=== PATIENT | female | born 1995 | race Caucasian/White ===

== ENCOUNTER 2018-03-23 19:33 | Emergency (ER) | payer BC ==
--- NOTE | 2018-03-23 19:42 | EDM.PDOC ---
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 10 wks bleeding Time Seen by Provider: 03/23/18 19:35 Source of Information: Reports: Patient, Family () History Limitations: Reports: No Limitations - History of Present Illness INITIAL COMMENTS - FREE TEXT/NARRATIVE: Patient was brought to the emergency room via private automobile by her for evaluation of a possible SAB with the patient currently about 10 weeks with EDC of 10/21/18. She is 1 para 0 with no problems in her to this point. She has had an initial OB visit at [facility] in [place] with records not available for review. She began experiencing some mild to moderate vaginal bleeding at about 19:20 hours this afternoon in her bathroom when having a BM after driving home from [place] earlier this afternoon. She is having some lower abdominal and pelvic cramping at about 2/10. No recent history of other abdominal pain, heartburn, nausea, diarrhea, melena, gross hematochezia, or any food intolerance, including fatty foods, etc.. The patient also denies any recent fever, cough, wheezing, dyspnea, etc.. No recent history of fever, colic, hematuria, or other UTI symptoms. She also denies any recent history of fall, injury, aggressive intercourse, etc. Onset: Today, Sudden Onset Date: 03/23/18 Onset Time: 19:20 Duration: Constant Location: Reports: Abdomen, Pelvis. Denies: Head, Face, Neck, Chest, Back, Upper Extremity, Left, Upper Extremity, Right, Lower Extremity, Left, Lower Extremity, Right, Generalized, Radiates to Quality: Reports: Pressure, Stabbing Severity: Mild Improves with: Reports: None Worsens with: Reports: None Context: Reports: Other (As above) Associated Symptoms: Denies: Confusion, Chest Pain, Cough, Diaphoresis, Fever/ Chills, Loss of Appetite, Malaise, Nausea/Vomiting, Shortness of Breath, Syncope , Weakness Treatments VALVER: Reports: Other (see below) (None) Pelvic Pain Score (Numeric/FACES): 2 Past Medical History HEENT History: Reports: Impaired Vision, Other (See Below) Other HEENT History: She wears glasses Cardiovascular History: Reports: None. Denies: Hypertension Respiratory History: Reports: None. Denies: Asthma, COPD Gastrointestinal History: Reports: None. 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 Denies: Fracture Neurological History: Reports: Headaches, Chronic, Other (See Below) Other Neuro History: Chronic headaches secondary to her neck pain Psychiatric History: Reports: None. Denies: Anxiety, Depression Endocrine/Metabolic History: Reports: Obesity/BMI 30+. Denies: Diabetes, Type I , Diabetes, Type II, Hypothyroidism, IDDM Hematologic History: Reports: None. Denies: Anemia - Past Surgical History Head Surgeries/Procedures: Reports: None HEENT Surgical History: Reports: Oral Surgery, Other (See Below). Denies: Adenoidectomy, Eye Surgery, Laser Surgery, LASIK, Myringotomy w Tube(s), Naso- Sinus Surgery, Tonsillectomy Other HEENT Surgeries/Procedures: [place] teeth extraction 4 at age 15 Cardiovascular Surgical History: Reports: None Respiratory Surgical History: Reports: None GI Surgical History: Reports: None. Denies: Appendectomy, Cholecystectomy, Hernia, Abdominal, Hernia, Inguinal, Hernia Repair/Other Female Surgical History: Reports: None Neurological Surgical History: Reports: None Musculoskeletal Surgical History: Reports: None Oncologic Surgical History: Reports: None Dermatological Surgical History: Reports: None - Past Imaging History Past Imaging History: Reports: Ultrasound (OB ultrasound on 03/11/18) Social & Family History - Tobacco Use Smoking Status *Q: Never Smoker Tobacco Use Within Last Twelve Months: No Used Tobacco, but Quit: No Smoking Cessation Information Provided To Patient: No Second Hand Smoke Exposure: Yes Source of Second Hand Smoke Exposure: smokes Second Hand Smoke Education Provided: Yes - Alcohol Use Alcohol Use History: No Days Per Week of Alcohol Use: 0 (No previous DWIs, problems with alcohol abuse, etc.) Alcohol Use in Last Twelve Months: No - Recreational Drug Use Recreational Drug Use: No Drug Use in Last 12 Months: No Recreational Drug Type: Denies: Amphetamines (Speed), Cocaine, Heroin, Inhalants (Glues, Solvents, Aerosols), LSD (Acid), Methamphetamine, Methaqualone , Morphine, Oxycodone - Sexual History Sexual History: Reports: Sexually Active, Single Partner - Living Situation & Occupation Living situation: Reports: (2016), with Family () Occupation: Employed ([employer] ED ROS GENERAL - Review of Systems Review Of Systems: ROS reveals no pertinent complaints other than HPI. ED EXAM - Physical Exam Exam: See Below Exam Limited By: No Limitations General Appearance: Alert, WD/WN, No Apparent Distress, Anxious (Mild) Head: Atraumatic, Normocephalic Neck: Normal Inspection, Supple, Non-Tender, Full Range of Motion. No: Lymphadenopathy (L), Lymphadenopathy (R), Thyromegaly Respiratory/Chest: No Respiratory Distress, Lungs Clear, Normal Breath Sounds, No Accessory Muscle Use, Chest Non-Tender. No: Pleural Rub, Retractions Cardiovascular: Normal Peripheral Pulses, Regular Rate, Rhythm, No Gallop, No JVD, No Murmur, No Rub. No: No Edema (Mild dependent edema as below), Gallop/S3 , Gallop/S4 GI/Abdominal Exam: Normal Bowel Sounds, Soft, Non-Tender, No Organomegaly, No Distention, No Abnormal Bruit, No Mass, Pelvis Stable, Other (Obese). No: Guarding Fundal Height In cm: 10 Rectal Exam: Deferred (Female) Exam: Enlarged Uterus (10 weeks gestational age by pelvic exam), Vaginal Bleeding (Moderate with no clots). No: Adnexal Mass (L), Adnexal Mass ( R), Adnexal Tenderness, Cervical Dilatation, Cervical Discharge, Cervical Fluid , Cervix Motion Tenderness, Products of Conception, Tissue Present in Cervix/ Vagina, Uterine Tenderness, Vaginal Discharge, Vaginal Lesions, Vaginal Tears Heart Tones: Not [place] (However only 10 weeks gestation) Movement: Not Appreciated Back Exam: Normal Inspection, Full Range of Motion. No: CVA Tenderness (L), CVA Tenderness (R), Muscle Spasm Extremities: Normal Inspection, Normal Range of Motion, Non-Tender, Normal Capillary Refill, Pedal Edema (Trace to +1 bilateral pedal/pretibial edema). No : [place]'s Sign Neurological: Alert, Oriented, CN II-XII Intact, Normal Cognition, Normal Gait, Normal Reflexes (Negative Babinski's), No Motor/Sensory Deficits Psychiatric: Anxious (Mild), Depressed Mood (Mild secondary to possible SAB) Skin Exam: Warm, Dry, Intact, Normal Color, No Rash, Stud(s) (Right nasal ring) , Tattoo(s) (Multiple). No: Diaphoretic, Wound/Incision Lymphatic: No Adenopathy Course - Vital Signs Last Recorded V/S: Last Vital Signs Temp 36.8 C 03/23/18 21:54 Pulse 77 03/23/18 21:54 Resp 16 03/23/18 21:54 BP 105/61 03/23/18 21:54 Pulse Ox 100 03/23/18 21:54 Vital Signs - 24 hr 03/23/18 21:54 Temperature [ 36.8 C Oral] Pulse, 77 Peripheral [ Left Pulse Oximetry] Respiratory 16 Rate Blood Pressure 105/61 [Left Upper Arm ] O2 Sat by Pulse 100 Oximetry - Orders/Labs/Meds Orders: Active Orders 24 hr Category Date Time Status CHLAMYDIA AND GONORRHEA BY TMA Routine Lab 03/23/18 20:09 Received GENITAL CULTURE [MREF] Stat Lab 03/23/18 20:07 Received Obtain Past Medical Record [OM.PC] Routine Oth 03/23/18 19:42 Active Labs: Laboratory Tests 03/23/18 03/23/18 03/23/18 Range/Units 19:50 19:50 19:50 WBC 11.0 H (4.0-10.2) K/uL RBC 4.72 (3.77-5.09) M/uL Hgb 14.3 (11.7-15.5) g/dL Hct 39.8 (34.0-46.0) % MCV 84.3 (84.0-98.0) fL MCH 30.3 (28.2-33.3) pg MCHC 35.9 (31.7-36.0) g/dL RDW 13.5 (11.2-14.1) % Plt Count 296 (150-350) K/uL Neut % (Auto) 68.2 (45.0-80.0) % Lymph % (Auto) 25.0 (10.0-50.0) % [place] % (Auto) 5.5 (2.0-14.0) % Eos % (Auto) 1.1 (0.0-5.0) % Baso % (Auto) 0.2 (0.0-2.0) % Neut # (Auto) 7.49 H (1.40-7.00) K/uL Lymph # (Auto) 2.75 (0.50-3.50) K/uL [place] # (Auto) 0.60 (0.00-1.00) K/uL Eos # (Auto) 0.12 (0.00-0.50) K/uL Baso # (Auto) 0.02 (0.00-0.20) K/uL Sodium 138 (136-145) mmol/L Potassium 3.8 (3.5-5.1) mmol/L Chloride 105 (98-107) mmol/L Carbon Dioxide 21.1 (21.0-32.0) mmol/L BUN 7 (7-18) mg/dL Creatinine 0.56 (0.51-1.17) mg/dL Est Cr Clr Drug Dosing TNP Estimated GFR (MDRD) > 60 mL/min Glucose 93 (74-106) mg/dL Calcium 8.2 L (8.5-10.1) mg/dL Total Bilirubin 0.3 (0.2-1.0) mg/dL AST 21 (15-37) U/L ALT 37 (12-78) U/L Alkaline Phosphatase 64 (46-116) IU/L Total Protein 7.7 (6.4-8.2) g/dL Albumin 3.5 (3.4-5.0) g/dL TSH, Ultra Sensitive (0.358-3.740) mIU/mL HCG, Quant mIU/mL Blood Type B POSITIVE 03/23/18 03/23/18 Range/Units 19:50 19:50 WBC (4.0-10.2) K/uL RBC (3.77-5.09) M/uL Hgb (11.7-15.5) g/dL Hct (34.0-46.0) % MCV (84.0-98.0) fL MCH (28.2-33.3) pg MCHC (31.7-36.0) g/dL RDW (11.2-14.1) % Plt Count (150-350) K/uL Neut % (Auto) (45.0-80.0) % Lymph % (Auto) (10.0-50.0) % [place] % (Auto) (2.0-14.0) % Eos % (Auto) (0.0-5.0) % Baso % (Auto) (0.0-2.0) % Neut # (Auto) (1.40-7.00) K/uL Lymph # (Auto) (0.50-3.50) K/uL [place] # (Auto) (0.00-1.00) K/uL Eos # (Auto) (0.00-0.50) K/uL Baso # (Auto) (0.00-0.20) K/uL Sodium (136-145) mmol/L Potassium (3.5-5.1) mmol/L Chloride (98-107) mmol/L Carbon Dioxide (21.0-32.0) mmol/L BUN (7-18) mg/dL Creatinine (0.51-1.17) mg/dL Est Cr Clr Drug Dosing Estimated GFR (MDRD) mL/min Glucose (74-106) mg/dL Calcium (8.5-10.1) mg/dL Total Bilirubin (0.2-1.0) mg/dL AST (15-37) U/L ALT (12-78) U/L Alkaline Phosphatase (46-116) IU/L Total Protein (6.4-8.2) g/dL Albumin (3.4-5.0) g/dL TSH, Ultra Sensitive 0.916 (0.358-3.740) mIU/mL HCG, Quant 876758 mIU/mL Blood Type Microbiology 03/23/18 20:08 Wet Prep - Final Vagina Negative wet prep Meds: None - Radiology Interpretation Free Text/Narrative:: None Departure - Departure Time of Disposition: 21:15 Disposition: Home, Self-Care 01 Condition: Good Clinical Impression: Intrauterine , Threatened , Tobacco abuse counseling - Discharge Information Instructions: Miscarriage, [id number] Forms: ED Department Discharge Additional Instructions: 1. This facility will call you tomorrow morning for scheduling of an OB ultrasound to be conducted on 03/24 in order to determine whether you are having a miscarriage. Sign release of these results to your OB doctor at [facility]. Do not leave this facility until you hear a preliminary report from me tomorrow 2. Pelvic rest as discussed 3. Tylenol 650 mg by mouth every 4 hours when necessary as directed. 4. Work excuse- See Form. Additional blank Bobcat form given to you today for your OB doctor. 5. Follow-up with your OB doctor in 2 days for reevaluation and recommended repeat quantitative beta-hCG equal test 6. If you do pass "tissue " place this in the provided container with tapwater and a pinch of salt and bring this to this facility for further evaluation as discussed. - Problem List & Annotations (1) Threatened SNOMED Code(s): 61137494 Code(s): O20.0 - THREATENED Status: Acute Priority: High Onset Date: 03/23/18 Annotation/Comment:: Threatening incomplete SAB at 10 weeks gestation versus possible placental implantational bleeding. Emotional support was provided. The patient and her were provided information concerning possible SAB. Close follow-up in this facility and by her OB as per discharge instructions. Pelvic rest, etc. discussed. [employer] work excuse completed for both the patient and her . Note normal leukocytosis of with borderline hypocalcemia. No fever or history of recent infection , including UTI symptoms, etc.. Vaginal specimens collected for culture and sensitivity, GC, and chlamydia with results pending. The level of quantitative beta-hCG is appropriate for current stage of . (2) Intrauterine SNOMED Code(s): 71461093 Code(s): Z34.90 - ENCNTR FOR SUPRVSN OF NORMAL , UNSP, UNSP TRIMESTER Status: Acute Priority: High Annotation/Comment:: 10 weeks gestational age with apparent recent normal initial OB visit at [facility] in [place]. OB ultrasound on 03/11/18 was normal with heart activity noted at that time by their history although heart tones have yet to be heard. Possible SAB as above (3) Tobacco abuse counseling SNOMED Code(s): 674579128, 152959051, 857218340 Code(s): Z71.6 - TOBACCO ABUSE COUNSELING Status: Chronic Priority: Medium Annotation/Comment:: Stop all tobacco exposure ZAYDA as directed/per provided information and consider contacting Quit LIne, etc.. The patient and her were counseled on risks of tobacco moke exposure - Problem List Review Problem List Initiated/Reviewed/Updated: Yes - My Orders Last 24 Hours: My Active Orders 03/23/18 19:42 Obtain Past Medical Record [OM.PC] Routine 03/23/18 20:07 GENITAL CULTURE [MREF] Stat 03/23/18 20:09 CHLAMYDIA AND GONORRHEA BY TMA Routine - Assessment/Plan Last 24 Hours: My Active Orders 03/23/18 19:42 Obtain Past Medical Record [OM.PC] Routine 03/23/18 20:07 GENITAL CULTURE [MREF] Stat 03/23/18 20:09 CHLAMYDIA AND GONORRHEA BY TMA Routine Assessment:: As above Plan: As above. Extensive precautions were given to the patient and her , who are in agreement with the treatment plan. See Patient Instructions for further treatment and plan.
[2018-03-23 20:20] LABS: CHLORIDE,CL 105 mmol/L (98-107); SODIUM,NA 138 mmol/L (136-145)
== END 2018-03-23 21:13 | disposition home or self-care (01) ==
LOC: LL.ED 19:33
DX: O20.0 Threatened abortion (principal); Z71.6 Tobacco abuse counseling; Z3A.10 10 weeks gestation of pregnancy
CPT/HCPCS: 36415; 80053; 84443; 84702; 85025; 86900; 86901; 87070; 87205; 87210; 87491; 87591; 99284

== ENCOUNTER 2018-07-11 05:13 | Emergency (ER) | payer BC, OTHER ==
[2018-07-11] MEDS: Bacitracin/Neomycin/Polymyxin B Oint 0.9 GM U/D Packet TOP ONE (05:46)
--- NOTE | 2018-07-11 05:46 | EDM.PDOC ---
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 Patient is 6 months gestation will deliver around September. Tetanus needs updating Onset: Today Duration: Minutes:, Constant Location: Reports: Lower Extremity, Right Quality: Reports: Ache Severity: Mild Improves with: Reports: Other (Pressure dressing) Worsens with: Reports: None Context: Reports: Trauma Right Lower Leg Pain Score (Numeric/FACES): 3 - Related Data Allergies Allergy/AdvReac Type Severity Reaction Status Date / Time cantalope Allergy Itching Uncoded 07/11/18 05:14 Home Meds: Home Meds PNV95/Ferrous Fumarate/FA [ Tablet] 1 each PO DAILY 07/11/18 [History] Past Medical History HEENT History: Reports: Impaired Vision, Other (See Below) Other HEENT History: She wears glasses Cardiovascular History: Reports: None. Denies: Hypertension Respiratory History: Reports: None. Denies: Asthma, COPD Gastrointestinal History: Reports: None. Denies: GERD Genitourinary History: Reports: None TIER IN History: Reports: Musculoskeletal History: Reports: Arthritis, Neck Pain, Chronic. Denies: Fracture Neurological History: Reports: Headaches, Chronic, Other (See Below) Other Neuro History: Chronic headaches secondary to her neck pain Psychiatric History: Reports: None. Denies: Anxiety, Depression Endocrine/Metabolic History: Reports: Obesity/BMI 30+. Denies: Diabetes, Type I , Diabetes, Type II, Hypothyroidism, IDDM Hematologic History: Reports: None. Denies: Anemia - Past Surgical History Head Surgeries/Procedures: Reports: None HEENT Surgical History: Reports: Oral Surgery, Other (See Below). Denies: Adenoidectomy, Eye Surgery, Laser Surgery, LASIK, Myringotomy w Tube(s), Naso- Sinus Surgery, Tonsillectomy Other HEENT Surgeries/Procedures: [place] teeth extraction 4 at age 15 Cardiovascular Surgical History: Reports: None Respiratory Surgical History: Reports: None GI Surgical History: Reports: None. Denies: Appendectomy, Cholecystectomy, Hernia, Abdominal, Hernia, Inguinal, Hernia Repair/Other Female Surgical History: Reports: None Neurological Surgical History: Reports: None Musculoskeletal Surgical History: Reports: None Oncologic Surgical History: Reports: None Dermatological Surgical History: Reports: None - Past Imaging History Past Imaging History: Reports: Ultrasound (OB ultrasound on 03/11/18) Social & Family History - Tobacco Use Smoking Status *Q: Never Smoker - Sexual History Sexual History: Reports: Sexually Active, Single Partner - Living Situation & Occupation Living situation: Reports: (2016), with Family () Occupation: Employed ([employer]) ED ROS GENERAL - Review of Systems Review Of Systems: See Below Constitutional: Reports: No Symptoms HEENT: Reports: No Symptoms Respiratory: Reports: No Symptoms Cardiovascular: Reports: No Symptoms Endocrine: Reports: No Symptoms GI/Abdominal: Reports: Other (The uterus 6 week 6 months) : Reports: No Symptoms Musculoskeletal: Reports: Leg Pain (laceration right leg 3cm) Skin: Reports: No Symptoms Neurological: Denies: Confusion, Dizziness, Headache Psychiatric: Reports: No Symptoms Hematologic/Lymphatic: Reports: No Symptoms Immunologic: Reports: No Symptoms ED EXAM, SKIN/RASH Exam: See Below Exam Limited By: No Limitations General Appearance: Alert, WD/WN, No Apparent Distress Ears: Normal External Exam, Normal Canal, Hearing Grossly Normal, Normal TMs Nose: Normal Inspection, Normal Mucosa, No Blood Throat/Mouth: Normal Inspection, Normal Lips, Normal Teeth, Normal Gums, Normal Oropharynx, Normal Voice, No Airway Compromise Head: Atraumatic, Normocephalic Neck: Normal Inspection, Supple, Non-Tender, Full Range of Motion Respiratory/Chest: No Respiratory Distress, Lungs Clear, Normal Breath Sounds, No Accessory Muscle Use, Chest Non-Tender Cardiovascular: Normal Peripheral Pulses, Regular Rate, Rhythm, No Edema, No Gallop, No JVD, No Murmur, No Rub GI/Abdominal: Normal Bowel Sounds, Soft, Other (Uterus palpable 6 months gestation) (Female) Exam: Enlarged Uterus Rectal (Female) Exam: Deferred Back Exam: Normal Inspection, Full Range of Motion, NT Extremities: Normal Inspection, Normal Range of Motion, Non-Tender, No Pedal Edema, Normal Capillary Refill Neurological: Alert, Oriented, CN II-XII Intact, Normal Cognition, Normal Gait, Normal Reflexes, No Motor/Sensory Deficits Psychiatric: Normal Affect, Normal Mood Skin: Wound/Incision (Laceration right leg 3 cm) Lymphatic: No Adenopathy ED SKIN PROCEDURES - Laceration/Wound Repair Right Anterior Proximal Leg Lac/Wound length In cm: 3 Appearance: Superficial Anesthetic Type: Local Local Anesthesia - Lidocaine (Xylocaine): 1% Plain Local Anesthetic Volume: 3cc Skin Prep: Chlorhexidine (Hibiciens) Exploration/Debridement/Repair: No Foreign Material Found Closed with: Sutures Suture Size: 4-0 # of Sutures: 4 Suture Type: Nylon Course - Vital Signs Last Recorded V/S: Last Vital Signs Temp 97.7 F 07/11/18 05:15 Pulse 94 07/11/18 05:15 Resp 18 07/11/18 05:15 BP 117/74 07/11/18 05:15 Pulse Ox 98 07/11/18 05:15 - Orders/Labs/Meds Orders: Active Orders 24 hr Category Date Time Status Vaccines to be Administered [RC] PER UNIT ROUTINE Care 07/11/18 05:32 Active Meds: Medications Discontinued Medications Generic Name Dose Route Start Last Admin Trade Name Freq PRN Reason Stop Dose Admin Diphtheria/Tetanus/Acell Pertussis 0.5 ml 07/11/18 05:31 07/11/18 05:47 Adacel IM 07/11/18 05:32 0.5 ml .ONCE ONE Administration Lidocaine HCl 5 ml 07/11/18 05:24 07/11/18 05:35 Xylocaine-Mpf 1% INJECT 07/11/18 05:25 5 ml ONETIME ONE Administration Neomycin/Polymyxin/Bacitracin 1 each 07/11/18 05:25 07/11/18 05:46 Triple Antibiotic Oint TOP 07/11/18 05:26 1 each ONETIME ONE Administration Departure - Departure Time of Disposition: 05:54 Disposition: Home, Self-Care 01 Condition: Good Clinical Impression: Laceration - Discharge Information *PRESCRIPTION DRUG MONITORING PROGRAM REVIEWED*: No *COPY OF PRESCRIPTION DRUG MONITORING REPORT IN PATIENT MCKAYLA: No Instructions: Laceration Care, Adult, VIS, Diphtheria, Tetanus, and Pertussis ( DTaP) - CDC (04/10/2007), Sutured Wound Care, [id number] Referrals: Shannon Justice, BALLAST CLEANING OPERATOR [Primary Care Provider] - Forms: ED Department Discharge Care Plan Goals: Patient to return for suture removal in 10 days return to the ER or to the clinic if any signs of infection redness pus - My Orders Last 24 Hours: My Active Orders 07/11/18 05:32 Vaccines to be Administered [RC] PER UNIT ROUTINE - Assessment/Plan Last 24 Hours: My Active Orders 07/11/18 05:32 Vaccines to be Administered [RC] PER UNIT ROUTINE
[2018-07-11] MEDS: Diphtheria,Pertussis(Acell),Tetanus Vaccine 0.5 ML SDV IM ONE (05:47)
== END 2018-07-11 05:55 | disposition home or self-care (01) ==
LOC: LL.ED 05:13
DX: O9A.212 Injury, poisoning and certain other consequences of external causes complicating pregnancy, second trimester (principal); S81.811A Laceration without foreign body, right lower leg, initial encounter; Z88.8 Allergy status to other drugs, medicaments and biological substances; Z23 Encounter for immunization; X78.8XXA Intentional self-harm by other sharp object, initial encounter
CPT/HCPCS: 12002; 90471; 90715; 99282

== ENCOUNTER 2020-10-12 16:25 | Emergency (ER) | payer BC, OTHER ==
[2020-10-12] MEDS ORDERED: Ketorolac 60 MG/2 ML SDV IM ONE (16:35)
--- NOTE | 2020-10-12 18:03 | EDM.PDOC ---
ED HPI GENERAL MEDICAL PROBLEM - General Chief Complaint: Back Pain or Injury Stated Complaint: left back pain Time Seen by Provider: 10/12/20 16:25 Source of Information: Reports: Patient, Old Records ([facility] EMR. No paper hospital chart available.) History Limitations: Reports: No Limitations - History of Present Illness INITIAL COMMENTS - FREE TEXT/NARRATIVE: The patient was brought to the emergency room via transport vehicle from [facility] for evaluation of a Workmen's Compensation injury, which occurred at about 3:30 PM this afternoon. The patient was lifting a box of parts which weighed somewhere between 40 to 60 pounds I did carry that blocks to a forklift successfully without problems. However when she stood up after carrying this box and twisted, she felt a sudden onset 9/10 left-sided sharp low back pain and spasms with possible occasional paresthesias in her right leg but no evidence of neurological deficits, weakness, fall, or other injury. No medications or treatment have been given to this point. She does have a history of intermittent low back pain in the past. She denies any gross hematuria, colic, or other UTI symptoms. No recent history of abdominal pain, heartburn, nausea, diarrhea, melena, gross hematochezia, or any food intolerance, including fatty foods, etc.. The patient denies any chest pain/pressure, heart flutter, dizziness, orthostasis, orthopnea, diaphoresis, paresthesias, recent decreased exercise tolerance, or any other anginal-type symptoms. Her back pain does improve to 7/10 with rest. Onset: Today, Sudden Onset Date: 10/12/20 Onset Time: 15:30 Duration: Constant Location: Reports: Back, Lower Extremity, Right, Radiates to (As above). Denies: Head, Face, Neck, Chest, Abdomen, Pelvis, Upper Extremity, Left, Upper Extremity, Right Quality: Reports: Same as Previous Episode, Sharp Severity: Severe Improves with: Reports: Rest Worsens with: Reports: Movement Context: Reports: Trauma (As above) Associated Symptoms: Denies: Confusion, Chest Pain, Cough, Diaphoresis, Fever/Chills, Headaches, Loss of Appetite, Malaise, Nausea/Vomiting, Rash, Seizure, Shortness of Breath, Syncope, Weakness Treatments SUPERVISING ARCHITECT: Reports: Other (see below) (None) Left Back Pain Score (Numeric/FACES): 7 - Related Data Allergies Allergy/AdvReac Type Severity Reaction Status Date / Time nickel Allergy Itching Verified 10/12/20 16:31 cantalope Allergy Itching Uncoded 10/12/20 16:49 Home Meds: Home Meds Cholecalciferol (Vitamin D3) [Vitamin D] 5,000 unit PO DAILY 10/12/20 [History] Cyclobenzaprine [Flexeril] 10 mg PO TID PRN #30 tab 10/12/20 [Rx] Fish Oil/[place]-3 Fatty Acids [Fish Oil 1,000 MG] 1 each PO DAILY 10/12/20 [History] Multivitamin [Multivitamins] 1 each PO DAILY 10/12/20 [History] Sertraline [Zoloft] 100 mg PO DAILY 10/12/20 [History] medroxyPROGESTERone [Depo-Provera] 150 mg IM Q90D 10/12/20 [History] Past Medical History HEENT History: Reports: Impaired Vision, Other (See Below) Other HEENT History: She wears glasses Cardiovascular History: Reports: None. Denies: Hypertension Respiratory History: Reports: None. Denies: Asthma, COPD Gastrointestinal History: Reports: Chronic Constipation, Chronic Diarrhea, Other (See Below). Denies: GERD, Irritable Bowel Syndrome Other Gastrointestinal History: No GI work-up to this point or definite diagnosis of irritable bowel syndrome. Genitourinary History: Reports: None DELICATESSEN DEPARTMENT MANAGER History: Reports: , Therapeutic : 2 Para: 1 LMP (Approximate): Other (See Below) Other DELICATESSEN DEPARTMENT MANAGER History: Patient currently on Depo Provera with only occasional menses the last one a few months ago. She did have an elective . History of subchorionic hemorrhage on 03/24/2018 with the last , however she did have a full-term delivery at 39 weeks without complications. Some gestational diabetes during that , however. Musculoskeletal History: Reports: Arthritis, Back Pain, Chronic, Neck Pain, Chronic, Osteoarthritis. Denies: Fracture Neurological History: Reports: Headaches, Chronic, Other (See Below) Other Neuro History: Chronic headaches secondary to her neck pain Psychiatric History: Reports: Anxiety, Depression Endocrine/Metabolic History: Reports: Diabetes, Gestational, Obesity/BMI 30+. Denies: Diabetes, Type I, Diabetes, Type II, Hypothyroidism, IDDM Hematologic History: Reports: None. Denies: Anemia - Past Surgical History Head Surgeries/Procedures: Reports: None HEENT Surgical History: Reports: Oral Surgery, Other (See Below). Denies: Adenoidectomy, Eye Surgery, Laser Surgery, LASIK, Myringotomy w Tube(s), Naso- Sinus Surgery, Tonsillectomy Other HEENT Surgeries/Procedures: [place] teeth extraction 4 at age 15 Cardiovascular Surgical History: Reports: None Respiratory Surgical History: Reports: None GI Surgical History: Reports: None. Denies: Appendectomy, Cholecystectomy, Hernia, Abdominal, Hernia, Inguinal, Hernia Repair/Other Female Surgical History: Reports: D&C, Dilitation & Evacuation, Other (See Below) Other Female Surgeries/Procedures: Elective as above. Neurological Surgical History: Reports: None Musculoskeletal Surgical History: Reports: None Oncologic Surgical History: Reports: None Dermatological Surgical History: Reports: None - Past Imaging History Past Imaging History: Reports: Ultrasound (OB ultrasound on 03/24/2018 and 03/11/18) Social & Family History - Tobacco Use Tobacco Use Status *Q: Former Tobacco User Tobacco Use Within Last Twelve Months: No Years of Tobacco use: 0 Packs/Tins Daily: 0.8 Packs/Tins Daily Comment: Patient smoked about 1 month with no use since 2016. - Alcohol Use Alcohol Use History: No Days Per Week of Alcohol Use: 0 Number of Drinks Per Day: 0 Number of Drinks Per Day Comment: No previous DWIs, problems with alcohol abuse, etc. Total Drinks Per Week: 0 Alcohol Use in Last Twelve Months: No - Recreational Drug Use Recreational Drug Use: No Drug Use in Last 12 Months: No Recreational Drug Type: Denies: Amphetamines (Speed), Cocaine, Heroin, Inhalants (Glues, Solvents, Aerosols), LSD (Acid), Marijuana/Hashish, Methamphetamine, Morphine - Sexual History Sexual History: Reports: Sexually Active, Single Partner - Living Situation & Occupation Living situation: Reports: (2016), with Family () Occupation: Employed ([employer]) ED ROS GENERAL - Review of Systems Review Of Systems: Comprehensive ROS is negative, except as noted in HPI. ED EXAM,LOWER BACK PAIN/INJURY - Physical Exam Exam: See Below Exam Limited By: No Limitations General Appearance: Alert, WD/WN, No Apparent Distress, Anxious (Mild) Head: Atraumatic, Normocephalic. No: Facial Swelling, Facial Tenderness, Sinus Tenderness Neck: Normal Inspection, Supple, Non-Tender, Full Range of Motion. No: Lymphadenopathy (L), Lymphadenopathy (R), Thyromegaly Respiratory/Chest: No Respiratory Distress, Lungs Clear, Normal Breath Sounds, No Accessory Muscle Use, Chest Non-Tender. No: Pleural Rub, Retractions Cardiovascular: Normal Peripheral Pulses, Regular Rate, Rhythm, No Edema, No Gallop, No JVD, No Murmur, No Rub. No: Gallop/S3, Gallop/S4, Friction Rub GI/Abdominal: Normal Bowel Sounds, Soft, Non-Tender, No Organomegaly, No Distention, No Abnormal Bruit, No Mass, Pelvis Stable, Other (Obese). No: Guarding (Female) Exam: Deferred Rectal (Female) Exam: Deferred Back Exam: Decreased Range of Motion (Secondary to low back pain and spasms), Muscle Spasm (Mild left mid to lower lumbar paraspinal region), Paraspinal Tenderness (Mid to lower left lumbar region). No: CVA Tenderness (L), CVA Tenderness (R) Extremities: Normal Inspection, Normal Range of Motion, Non-Tender, No Pedal Edema, Normal Capillary Refill. No: [place]'s Sign Neurological: Alert, Normal Mood/Affect, Normal Dorsiflexion, CN II-XII Intact, Normal Plantar Flexion, Normal Gait, No Motor/Sensory Deficits, Oriented x 3 Psychiatric: Anxious (Mild). No: Depressed Mood Skin Exam: Warm, Dry, Intact, Normal Color, No Rash. No: Wound/Incision Lymphatic: No Adenopathy Course - Vital Signs Last Recorded V/S: Last Vital Signs Temp 36.6 C 10/12/20 16:26 Pulse 70 10/12/20 16:26 Resp 20 10/12/20 16:26 BP 103/70 10/12/20 16:26 Pulse Ox 98 10/12/20 16:26 Vital Signs - 24 hr 10/12/20 16:26 Temperature [ 36.6 C Temporal] Pulse, 70 Peripheral [ Left Pulse Oximetry] Respiratory 20 Rate Blood Pressure 103/70 [Right Upper Arm] O2 Sat by Pulse 98 Oximetry - Orders/Labs/Meds Orders: Active Orders 24 hr Category Date Time Status Lumbar Spine Min 4V [CR] Stat Exams 10/12/20 16:34 Ordered Obtain Past Medical Record [OM.PC] Routine Oth 10/12/20 16:34 Active Labs: Laboratory Tests 10/12/20 Range/Units 17:00 HCG, Qual Negative (NEGATIVE) Meds: Medications Discontinued Medications Generic Name Dose Route Start Last Admin Trade Name Freq PRN Reason Stop Dose Admin Ketorolac Tromethamine 60 mg 10/12/20 16:35 10/12/20 16:50 Toradol IM 10/12/20 16:36 60 mg ONETIME ONE Administration - Radiology Interpretation Free Text/Narrative:: X-rays of the lumbar spine, complete including oblique views, shows no evidence of fracture, dislocation, etc. Only minimal arthritic changes noted with mild decrease of lordosis. Departure - Departure Time of Disposition: 18:35 Disposition: Home, Self-Care 01 Condition: Good Clinical Impression: Obesity (BMI 35.0-39.9 without comorbidity), Osteoarthritis, Mixed anxiety depressive disorder Low back pain Qualifiers: Chronicity: acute Back pain laterality: left Sciatica presence: without sciatica Qualified Code(s): M54.5 - Low back pain - Discharge Information *PRESCRIPTION DRUG MONITORING PROGRAM REVIEWED*: Not Applicable *COPY OF PRESCRIPTION DRUG MONITORING REPORT IN PATIENT MCKAYLA: Not Applicable Prescriptions: Cyclobenzaprine [Flexeril] 10 mg PO TID PRN #30 tab PRN Reason: Spasms Instructions: Acute Back Pain, Adult Referrals: PCP,None [Primary Care Provider] - Forms: ED Department Discharge Additional Instructions: 1. Follow up with your regular provider in 10-14 days as needed, if symptoms persist. Bring these discharge instructions with you to that visit.. 2. Tylenol 650 mg by mouth every 4 hours and/or OTC ibuprofen 2-3 tabs by mouth every 6 hours with food as directed./needed. You may stagger these medications for 48-72 hours only, which essentially means that you are receiving a pain medication about every 2 hours. Next dose of ibuprofen as needed in 6 hours secondary to medications given in the emergency room 3. BenGay or equivalent, heating pad, and/or ice packs as directed. 4. Work excuse- See Form 5. Sedation, dry mouth, confusion precautions with Flexeril/cyclobenzaprine with decrease of medication to 1/2 tablet, if significant symptoms occur. 6. Immediately after this visit verify that your cellular telephone's voicemail has been activated and is empty. Also verify that your home telephone's answering machine is operating properly and has space to receive messages. Note that it is sometimes necessary for us to be able to contact you at a later date to discuss your medical care. 7. Please remember that we are ALWAYS here for you and want to answer any questions you may have. Feel free to call the hospital any time and we call you back ZAYDA. Sepsis Event Note (ED) - Evaluation Sepsis Screening Result: No Definite Risk - Focused Exam Vital Signs: Vital Signs Temp Pulse Resp BP Pulse Ox 10/12/20 16:26 36.6 C 70 20 103/70 98 - Problem List & Annotations (1) Low back pain SNOMED Code(s): 241316454 Code(s): M54.5 - LOW BACK PAIN Status: Acute Priority: High Onset Date: 10/12/20 Annotation/Comment:: Symptomatic relief as per discharge instructions. [employer] work excuse and Workmen's Compensation forms were completed. Activity restrictions, etc. were discussed. Patient was cautioned about sedation, dry mouth, and confusion with Flexeril, although she has appa rently tolerated this medication in the past. Emergency room prescription of Flexeril was provided. Qualifiers: Chronicity: acute Back pain laterality: left Sciatica presence: without sciatica Qualified Code(s): M54.5 - Low back pain (2) Osteoarthritis SNOMED Code(s): 054455687 Code(s): M19.90 - UNSPECIFIED OSTEOARTHRITIS, UNSPECIFIED SITE Status: Chronic Priority: Medium Annotation/Comment:: No evidence of other injury with her arthritis otherwise been stable. Qualifiers: Osteoarthritis location: multiple joints Osteoarthritis type: primary Qualified Code(s): M89.49 - Other hypertrophic osteoarthropathy, multiple sites (3) Mixed anxiety depressive disorder SNOMED Code(s): 361246351 Code(s): F41.8 - OTHER SPECIFIED ANXIETY DISORDERS Status: Chronic Priority: Medium Annotation/Comment:: Borderline control based on today's exam. Continue to observe closely by his regular provider. (4) Obesity (BMI 35.0-39.9 without comorbidity) SNOMED Code(s): 493445466, [id number] Code(s): E66.9 - OBESITY, UNSPECIFIED Status: Chronic Priority: Medium Annotation/Comment:: Weight loss in moderation is advisable, which would also be beneficial for her intermittent low back pain. - Problem List Review Problem List Initiated/Reviewed/Updated: Yes - My Orders Last 24 Hours: My Active Orders 10/12/20 16:34 Lumbar Spine Min 4V [CR] Stat Obtain Past Medical Record [OM.PC] Routine - Assessment/Plan Last 24 Hours: My Active Orders 10/12/20 16:34 Lumbar Spine Min 4V [CR] Stat Obtain Past Medical Record [OM.PC] Routine Assessment:: As above Plan: As above. Extensive precautions were given to the patient, who is in agreement with the treatment plan. See Patient Instructions for further treatment and plan.
== END 2020-10-12 18:30 | disposition home or self-care (01) ==
LOC: LL.ED 16:25
DX: M54.5 Low back pain (principal); E66.9 Obesity, unspecified; M19.90 Unspecified osteoarthritis, unspecified site; F41.8 Other specified anxiety disorders; Z88.8 Allergy status to other drugs, medicaments and biological substances; Z91.018 Allergy to other foods; Z79.899 Other long term (current) drug therapy; Z87.891 Personal history of nicotine dependence
CPT/HCPCS: 36415; 72110; 84703; 96372; 99283-25; J1885

== ENCOUNTER 2020-12-07 22:54 | Emergency (ER) | payer BC, OTHER ==
--- NOTE | 2020-12-07 23:09 | EDM.PDOC ---
ED HPI GENERAL MEDICAL PROBLEM - General Chief Complaint: Lower Extremity Injury/Pain Stated Complaint: RIGHT FOOT INJURY Time Seen by Provider: 12/07/20 23:05 Source of Information: Reports: Patient History Limitations: Reports: No Limitations - History of Present Illness INITIAL COMMENTS - FREE TEXT/NARRATIVE: Dropped heavy object on dorsum of right foot Pain in mid-foot Onset: Today, Sudden Duration: Hour(s): Location: Reports: Lower Extremity, Right Quality: Reports: Throbbing Severity: Moderate Context: Reports: Trauma Right Feet Pain Score (Numeric/FACES): 8 - Related Data Allergies Allergy/AdvReac Type Severity Reaction Status Date / Time nickel Allergy Itching Verified 12/07/20 22:58 cantalope Allergy Itching Uncoded 12/07/20 22:58 Home Meds: Home Meds Cholecalciferol (Vitamin D3) [Vitamin D] 5,000 unit PO DAILY 10/12/20 [History] Fish Oil/[place]-3 Fatty Acids [Fish Oil 1,000 MG] 1 each PO DAILY 10/12/20 [History] Multivitamin [Multivitamins] 1 each PO DAILY 10/12/20 [History] Sertraline [Zoloft] 100 mg PO DAILY 10/12/20 [History] Past Medical History HEENT History: Reports: Impaired Vision, Other (See Below) Other HEENT History: She wears glasses Cardiovascular History: Reports: None Respiratory History: Reports: None Gastrointestinal History: Reports: Chronic Constipation, Chronic Diarrhea, Other (See Below). Denies: GERD, Irritable Bowel Syndrome Other Gastrointestinal History: No GI work-up to this point or definite diagnosis of irritable bowel syndrome. Genitourinary History: Reports: None CLUB DIRECTOR History: Reports: , Therapeutic Other CLUB DIRECTOR History: Patient currently on Depo Provera with only occasional menses the last one a few months ago. She did have an elective . History of subchorionic hemorrhage on 03/24/2018 with the last , however she did have a full-term delivery at 39 weeks without complications. Some gestational diabetes during that , however. Musculoskeletal History: Reports: Arthritis, Back Pain, Chronic, Neck Pain, Chronic, Osteoarthritis. Denies: Fracture Neurological History: Reports: Headaches, Chronic, Other (See Below) Other Neuro History: Chronic headaches secondary to her neck pain Psychiatric History: Reports: Anxiety, Depression Endocrine/Metabolic History: Reports: Diabetes, Gestational, Obesity/BMI 30+. Denies: Diabetes, Type I, Diabetes, Type II, Hypothyroidism, IDDM Hematologic History: Reports: None - Past Surgical History Female Surgical History: Reports: D&C, Dilitation & Evacuation, Other (See Below) Other Female Surgeries/Procedures: Elective as above. - Past Imaging History Past Imaging History: Reports: Ultrasound (OB ultrasound on 03/24/2018 and 03/11/18) Social & Family History - Sexual History Sexual History: Reports: Sexually Active, Single Partner - Living Situation & Occupation Living situation: Reports: (2016), with Family () Occupation: Employed ([employer]) Review of Systems - Review of Systems Review Of Systems: See Below Musculoskeletal: Reports: Foot Pain ED EXAM, GENERAL - Physical Exam Exam: See Below Exam Limited By: No Limitations General Appearance: Alert, Mild Distress Extremities: Other (Right sprinkler tender with ambulation,movement and palpation) Course - Vital Signs Last Recorded V/S: Last Vital Signs Temp 97.1 F 12/07/20 23:00 Pulse 57 L 12/07/20 23:00 Resp 14 12/07/20 23:00 BP 133/69 12/07/20 23:00 Pulse Ox 100 12/07/20 23:00 - Orders/Labs/Meds Orders: Active Orders 24 hr Category Date Time Status Foot Comp Min 3V Rt [CR] Stat Exams 12/07/20 22:57 Ordered - Re-Assessments/Exams Free Text/Narrative Re-Assessment/Exam: 12/07/20 23:07 Xray: No obvious fracture Await report 12/07/20 23:08 Cast show placed per nursing Departure - Departure Time of Disposition: 23:15 Disposition: Home, Self-Care 01 Clinical Impression: Contusion of foot, right Qualifiers: Encounter type: initial encounter Qualified Code(s): S90.31XA - Contusion of right foot, initial encounter - Discharge Information *PRESCRIPTION DRUG MONITORING PROGRAM REVIEWED*: Not Applicable *COPY OF PRESCRIPTION DRUG MONITORING REPORT IN PATIENT MCKAYLA: Not Applicable Instructions: Foot Contusion, [id number] Additional Instructions: Ice as needed Activity as tolerated Follow up in clinic Sepsis Event Note (ED) - Evaluation Sepsis Screening Result: No Definite Risk - Focused Exam Vital Signs: Vital Signs Temp Pulse Resp BP Pulse Ox 12/07/20 23:00 97.1 F 57 L 14 133/69 100 - My Orders Last 24 Hours: My Active Orders 12/07/20 22:57 Foot Comp Min 3V Rt [CR] Stat - Assessment/Plan Last 24 Hours: My Active Orders 12/07/20 22:57 Foot Comp Min 3V Rt [CR] Stat
== END 2020-12-07 23:20 | disposition home or self-care (01) ==
LOC: LL.ED 22:54
DX: S90.31XA Contusion of right foot, initial encounter (principal); E66.9 Obesity, unspecified; Z88.8 Allergy status to other drugs, medicaments and biological substances; Z91.09 Other allergy status, other than to drugs and biological substances; Z68.37 Body mass index [BMI] 37.0-37.9, adult; W20.8XXA Other cause of strike by thrown, projected or falling object, initial encounter
CPT/HCPCS: 73630-RT; 99282; 99283-25

== ENCOUNTER 2021-05-25 22:58 | Emergency (ER) | payer BC ==
[2021-05-26] MEDS: Lidocaine 2% 5 ML SDV INJECT ONE (00:13)
--- NOTE | 2021-05-26 00:16 | EDM.PDOC ---
ED HPI GENERAL MEDICAL PROBLEM - General Chief Complaint: Upper Extremity Injury/Pain Stated Complaint: LEFT RING FINGER INJURY Time Seen by Provider: 05/25/21 23:30 Source of Information: Reports: Patient History Limitations: Reports: No Limitations - History of Present Illness INITIAL COMMENTS - FREE TEXT/NARRATIVE: Pt. states that the tip of her 4th digit of her L hand was crushed at work at [employer]. Pt. denies any injury elsewhere. Pt. states that she sustained the injury when she was putting tracks on a bobcat. Pt. states that her tetanus is up to date. Denies any injury elsewhere. She complains of some paresthesia to the distal portion of the digit. No obvious crepitus noted. Onset Date: 05/25/21 - Related Data Allergies Allergy/AdvReac Type Severity Reaction Status Date / Time nickel Allergy Itching Verified 05/26/21 00:24 cantalope Allergy Itching Uncoded 05/26/21 00:24 Home Meds: Home Meds Cholecalciferol (Vitamin D3) [Vitamin D] 5,000 unit PO DAILY 10/12/20 [History] Fish Oil/Ulysses-3 Fatty Acids [Fish Oil 1,000 MG] 1 each PO DAILY 10/12/20 [H istory] Multivitamin [Multivitamins] 1 each PO DAILY 10/12/20 [History] Sertraline [Zoloft] 100 mg PO DAILY 10/12/20 [History] Past Medical History HEENT History: Reports: Impaired Vision, Other (See Below) Other HEENT History: She wears glasses Cardiovascular History: Reports: None Respiratory History: Reports: None Gastrointestinal History: Reports: Chronic Constipation, Chronic Diarrhea, Other (See Below) Other Gastrointestinal History: No GI work-up to this point or definite diagnosis of irritable bowel syndrome. Genitourinary History: Reports: None QA REVIEWER History: Reports: , Therapeutic Other QA REVIEWER History: Patient currently on Depo Provera with only occasional menses the last one a few months ago. She did have an elective . History of subchorionic hemorrhage on 03/24/2018 with the last , however she did have a full-term delivery at 39 weeks without complications. Some gestational diabetes during that , however. Musculoskeletal History: Reports: Arthritis, Back Pain, Chronic, Neck Pain, Chronic, Osteoarthritis Neurological History: Reports: Headaches, Chronic, Other (See Below) Other Neuro History: Chronic headaches secondary to her neck pain Psychiatric History: Reports: Anxiety, Depression Endocrine/Metabolic History: Reports: Diabetes, Gestational, Obesity/BMI 30+ Hematologic History: Reports: None - Past Surgical History Head Surgeries/Procedures: Reports: None HEENT Surgical History: Reports: Oral Surgery, Other (See Below) Other HEENT Surgeries/Procedures: [place] teeth extraction 4 at age 15 Cardiovascular Surgical History: Reports: None Respiratory Surgical History: Reports: None GI Surgical History: Reports: None Female Surgical History: Reports: D&C, Dilitation & Evacuation, Other (See Below) Other Female Surgeries/Procedures: Elective as above. Neurological Surgical History: Reports: None Musculoskeletal Surgical History: Reports: None Oncologic Surgical History: Reports: None Dermatological Surgical History: Reports: None - Past Imaging History Past Imaging History: Reports: Ultrasound (OB ultrasound on 03/24/2018 and 03/11/18) Social & Family History - Caffeine Use Caffeine Use: Reports: None - Sexual History Sexual History: Reports: Sexually Active, Single Partner - Living Situation & Occupation Living situation: Reports: (2016), with Family () Occupation: Employed ([employer]) Review of Systems - Review of Systems Review Of Systems: Comprehensive ROS is negative, except as noted in HPI. Constitutional: Reports: No Symptoms Musculoskeletal: Reports: Other (See HPI) ED EXAM, GENERAL - Physical Exam Exam: See Below Exam Limited By: No Limitations General Appearance: Alert, WD/WN, No Apparent Distress Extremities: Other (Crush injury noted to 4th digit of L hand. Bleeding noted from under the nail. Approx. 1 cm laceration noted to pad of the digit. No obvious chad deformity noted.) ED TRAUMA EXTREMITY PROCEDURES - Laceration/Wound Repair Left Digit - 4th (Ring) Lac/Wound Length In cm: 2 Appearance: Subcutaneous, Stellate, Irregular Distal NVT: Neuro & Vascular Intact, No Tendon Injury Anesthetic Type: Local Local Anesthesia - Lidocaine (Xylocaine): 1% Plain Local Anesthetic Volume: 5cc Skin Prep: Chlorhexidine (Hibiciens), Saline Saline Irrigation (cc's): 500 Exploration/Debridement/Repair: Wound Explored, Minimal Debridement, Wound Margins Revised Closed With: Sutures Suture Size: 4-0 # of Sutures: 4 Suture Type: Nylon Course - Vital Signs Last Recorded V/S: Last Vital Signs Temp 37.1 C 07/01/21 23:00 Pulse 79 05/25/21 23:00 Resp 16 05/25/21 23:00 BP 130/66 05/25/21 23:00 Pulse Ox 100 05/25/21 23:00 - Orders/Labs/Meds Orders: Active Orders 24 hr Category Date Time Status Fingers Fourth Digit Lt F3 [CR] Stat Exams 05/25/21 23:02 Ordered Acetaminophen/Codeine [Tylenol with Codeine No.3 300MG/ Med 05/26/21 00:37 Ordered 30MG] 1 tab PO Q6H PRN Acetaminophen/Codeine [Tylenol with Codeine No.3 300MG/ Med 05/26/21 00:38 Ordered 30MG] 1 tab PO Q6H PRN Medication Orders Acetaminophen/Codeine Phosphate (Acetaminophen/Codeine 300-30 Mg Tab) 1 tab PO Q6H PRN PRN Reason: Pain Acetaminophen/Codeine Phosphate (Acetaminophen/Codeine 300-30 Mg Tab) 1 tab PO Q6H PRN PRN Reason: Pain Meds: Medications Generic Name Dose Route Start Last Admin Trade Name Freq PRN Reason Stop Dose Admin Acetaminophen/Codeine Phosphate 1 tab 05/26/21 00:37 Acetaminophen/Codeine 300-30 Mg Tab PO Q6H PRN Pain Acetaminophen/Codeine Phosphate 1 tab 05/26/21 00:38 Acetaminophen/Codeine 300-30 Mg Tab PO Q6H PRN Pain Discontinued Medications Generic Name Dose Route Start Last Admin Trade Name Freq PRN Reason Stop Dose Admin Ibuprofen 600 mg 05/26/21 00:37 Ibuprofen 600 Mg Tab PO 05/26/21 00:38 ONETIME ONE Lidocaine 5 ml 05/25/21 23:31 05/26/21 00:13 Lidocaine 2% 5 Ml Sdv INJECT 05/25/21 23:32 5 ml ONETIME ONE Administration Lidocaine HCl Confirm 05/26/21 00:24 05/26/21 00:48 Lidocaine 1% 5 Ml Sdv Administered 05/26/21 00:25 5 ml Dose Administration 5 ml .ROUTE .STK-MED ONE Departure - Departure Time of Disposition: 00:57 Disposition: Home, Self-Care 01 Clinical Impression: Crush injury to finger, Laceration, Subungual hematoma, Distal phalanx or phalanges, closed fracture - Discharge Information Instructions: Finger Fracture, Adult, Laceration Care, Adult, Cephalexin Tablets or Capsules, Acetaminophen; Codeine tablets, Probiotics Referrals: Savi Snyder NP [Primary Care Provider] - Forms: ED Department Discharge Additional Instructions: Off work tomorrow due to finger injury. keflex 500mg 1 tab 4 times daily for 10 days Keep dry for 72 hours. Keep dressing on until then. Then, you can remove the dressing. Keep open to air as much as possible. Cover if you anticipate the area getting dirty. You will need to follow-up in clinic for repeat x-rays. You will probably need to wear the splint for 4-6 weeks, depending on how it heals. I do not want you lifting more than 5 pounds with your left hand for at least 4 weeks. Return to ER if you notice any redness, swelling, or discharge from area. Sepsis Event Note (ED) - Focused Exam Vital Signs: Vital Signs Temp Pulse Resp BP Pulse Ox 05/25/21 23:00 37.1 C 79 16 130/66 100 - My Orders Last 24 Hours: My Active Orders 05/25/21 23:02 Fingers Fourth Digit Lt F3 [CR] Stat 05/26/21 00:37 Acetaminophen/Codeine [Tylenol with Codeine No.3 300MG/30MG] 1 tab PO Q6H PRN 05/26/21 00:38 Acetaminophen/Codeine [Tylenol with Codeine No.3 300MG/30MG] 1 tab PO Q6H PRN - Assessment/Plan Last 24 Hours: My Active Orders 05/25/21 23:02 Fingers Fourth Digit Lt F3 [CR] Stat 05/26/21 00:37 Acetaminophen/Codeine [Tylenol with Codeine No.3 300MG/30MG] 1 tab PO Q6H PRN 05/26/21 00:38 Acetaminophen/Codeine [Tylenol with Codeine No.3 300MG/30MG] 1 tab PO Q6H PRN Plan: Off work tomorrow due to finger injury. keflex 500mg 1 tab 4 times daily for 10 days Keep dry for 72 hours. Keep dressing on until then. Then, you can remove the dressing. Keep open to air as much as possible. Cover if you anticipate the area getting dirty. You will need to follow-up in clinic for repeat x-rays. You will probably need to wear the splint for 4-6 weeks, depending on how it heals. I do not want you lifting more than 5 pounds with your left hand for at least 4 weeks. Return to ER if you notice any redness, swelling, or discharge from area.
[2021-05-26] MEDS: Ibuprofen 600 MG Tab PO ONE (01:00)
[2021-05-26] MEDS: Acetaminophen/Codeine 300-30 MG Tab PO PRN ×2 (01:00)
== END 2021-05-26 01:10 | disposition home or self-care (01) ==
LOC: LL.ED 22:58
DX: S67.195A Crushing injury of left ring finger, initial encounter (principal); S62.635A Displaced fracture of distal phalanx of left ring finger, initial encounter for closed fracture; S61.214A Laceration without foreign body of right ring finger without damage to nail, initial encounter; E66.9 Obesity, unspecified; Z91.09 Other allergy status, other than to drugs and biological substances; Z88.8 Allergy status to other drugs, medicaments and biological substances; Z68.37 Body mass index [BMI] 37.0-37.9, adult; W23.0XXA Caught, crushed, jammed, or pinched between moving objects, initial encounter; Y99.0 Civilian activity done for income or pay
CPT/HCPCS: 12001; 73140-F3; 99283; 99283-25; A9270-GY